=== PATIENT | female | born 1960 | race Caucasian/White ===

== ENCOUNTER 2017-11-27 08:40 | Observation (INO) | payer BC, OTHER ==
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
[2017-11-27] MEDS ORDERED: Ondansetron INJ* 2 MG/ML VIAL IV PRN (12:07)
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
[2017-11-27] MEDS: Acetaminophen TAB* 325 MG PO PRN ×2 (15:25→19:21)
[2017-11-28] MEDS: Acetaminophen TAB* 325 MG PO PRN ×2 (00:10→04:24)
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
[2017-11-28] MEDS ORDERED: Sertraline* 50 MG TAB PO SCH (09:00)
[2017-11-28] MEDS ORDERED: Hydroxychloroquine TAB* 200 MG PO SCH (09:00)
[2017-11-28] MEDS ORDERED: Hydrochlorothiazide TAB* 25 MG PO SCH (09:00)
[2017-11-28] MEDS ORDERED: Atenolol TAB* 25 MG PO SCH (09:00)
[2017-11-28] MEDS ORDERED: HYDROcodone/ACETAMIN 5-325 MG* 1 TAB PO PRN (09:58)
[2017-11-28] MEDS ORDERED: HYDROcodone/ACETAMIN 5-325 MG* 1 TAB ONE (10:07)
[2017-11-28 12:04] VITALS: BP 105/55
--- NOTE | 2017-11-28 14:00 | PN ---
Progress Note - Progress Note Date of Service: 11/28/17 SOAP: Subjective: []C/o Chest shoulder soreness Headache poorly relieved by Tylenol No nausea Objective: []Neuro intact Assessment: []Stable F/U CT shows no increase in parafalcine SDH,traumatic SAH resolving Plan: []She is stable We discussed discharge with follow up 12/02
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
== END 2017-11-28 13:45 | disposition home or self-care (01) ==
LOC: ED 08:40 → SSU 12:00
PROVIDERS: ADMIT Neurological Surgery; ATTEND Neurological Surgery
DX: S06.6X0A Traumatic subarachnoid hemorrhage without loss of consciousness, initial encounter (principal); V43.52XA Car driver injured in collision with other type car in traffic accident, initial encounter; Y92.410 Unspecified street and highway as the place of occurrence of the external cause; I10 Essential (primary) hypertension; M32.9 Systemic lupus erythematosus, unspecified; G43.909 Migraine, unspecified, not intractable, without status migrainosus; Z79.899 Other long term (current) drug therapy
CPT/HCPCS: 70450; 71250; 72125; 72128; 99283; A9270-GY; G0378